=== PATIENT | female | born 2000 | race Caucasian/White ===

== ENCOUNTER 2023-02-07 14:13 | Emergency (ER) | payer OTHER ==
[2023-02-07 14:19] VITALS: BP 129/82; PULSE 113; RESP 18; TEMP 97.6; BMI 24.5
== END 2023-02-07 16:14 | disposition home or self-care (01) ==
LOC: JERFT 14:13 → JER 14:13 → JERFT 16:14
PROC: 0HQFXZZ Repair Right Hand Skin, External Approach (ICD-10-PCS; principal; 2023-02-07)
DX: S61.211A Laceration without foreign body of left index finger without damage to nail, initial encounter (principal); W26.0XXA Contact with knife, initial encounter
CPT/HCPCS: 99282-25